=== PATIENT | male | born 1975 | race Caucasian/White ===

== ENCOUNTER → 2016-11-08 | Outpatient (CLI) | payer MEDICAID ==
[~2016-11-08] MED LIST: ABILIFY10 MG PO; AMLODIPINE BESY10 MG PO; ANTIVERT PO; BOTOX INJECTIONS; CARVEDILOL3.125 MG PO; CLARITIN10 M3 PO; DULOXETINE HCL60 MG PO; FENOFIBRATE200 M1 PO; FLEXERIL10 MG PO; GABAPENTIN300 MG PO; GLIMEPIRIDE2 MG PO; IMITREX PO; METFORMIN PO; OMEPRAZOLE20 M1 PO; PROMETHAZINE HC25 MG PO; ROBAXIN 750750 M1 PO; TALWIN NX TABLE1 TAB PO; TOPAMAX50 MG PO; TRAZODONE HCL300 MG PO; VICTOZA0.6 MG/0.1 SUBQ; ZESTRIL40 MG PO
--- NOTE | ~2016-11-08 | MR60 ---
[facility] A Service of [facility] RADIOLOGY TEXT RESULTS PATIENT: MARIIA DIA LOCATION: [facility] : 77 UNIT #: [id number] AGE: [address]: CARLEY DUENAS MD SEX: M ORDER DR: [id number] [address] [id number] O MR#: [id number] Acc #: [id number] NAME: MARIIA DIA : 1975 SEX: M STUDY DATE/TIME: 11/08/2016 14:44 UNIT: [facility] ROOM: STUDY DESCRIPTION: MR Foot Wo Contrast Lt Attending Physician: Carley Duenas M.D. Referring Physician: Carley Duenas M.D. Ordering Physician: Physician Non-Staff Primary Care Physician: Susie Alatorre M.D. MRI CENTER REPORT This report is preliminary unless electronic signature is present. EXAM MRI of the left foot without contrast HISTORY Status post fall first week of September 2016, complains of medial foot pain and pain extending into arch, swelling and instability. FINDINGS Multiplanar multiecho imaging was performed of the left foot utilizing a high field magnet and dedicated protocol. Bone structure and alignment appears normal. No focal marrow edema. Small amount of subtalar joint fluid. Diffuse edema in the sinus tarsi. This is a nonspecific finding in the setting of recent trauma. The medial and lateral ankle ligaments appear intact. Soft tissue swelling about the posterior ankle. There is a longitudinal split tear of the peroneus brevis tendon involving the retromalleolar and inframalleolar tendon. The tear is estimated about 4 cm in length. This is superimposed on tendinopathy. There is also mild peroneus longus tendinopathy. The posterior tibial tendon appears intact. The flexor digitorum longus and flexor hallus longus tendons appear normal. The anterior extensor tendons and Achilles tendon appear intact. There is mild fatty atrophy of the abductor digiti minimi muscle which may represent the sequela of lateral plantar neuropathy. The plantar fascia appears normal. IMPRESSION 1. 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 2. Diffuse nonspecific edema sinus tarsi. STS. [facility] [place] A Service of [facility] RADIOLOGY TEXT RESULTS PATIENT: MARIIA DIA LOCATION: [facility] : 77 UNIT #: [id number] AGE: [address]: CARLEY DUENAS MD SEX: M ORDER DR: 3. Diffuse fatty atrophy abductor digiti minimi muscle may imply prior injury or compression of the lateral plantar nerve. 4. Mild generalized soft tissue swelling and edema about the ankle with a small subtalar joint effusion. 5. Mild peroneus longus tendinopathy. 1. Dictated by... Rizwana Baldwin M.D. THIS IS AN ELECTRONICALLY VERIFIED REPORT Rizwana Baldwin M.D. at 11/11/2016 5:38 PM TONA/elham TD: 11/11/2016 16:41 JOB #: [id number] MRI CENTER REPORT Page 1 of 1
== END | disposition home or self-care (01) ==
LOC: SMRI 08:37
DX: M25.472 Effusion, left ankle (principal); M25.372 Other instability, left ankle; M76.72 Peroneal tendinitis, left leg; S96.812A Strain of other specified muscles and tendons at ankle and foot level, left foot, initial encounter; R60.0 Localized edema; M62.572 Muscle wasting and atrophy, not elsewhere classified, left ankle and foot
CPT/HCPCS: 73718